=== PATIENT | male | born 1945 | race Caucasian/White ===

== ENCOUNTER 2019-03-10 05:34 | Emergency (ER) | payer MEDICARE, OTHER ==
[~2019-03-10] VITALS: Ht 170.2 cm; Wt 72.6 kg
[~2019-03-10 05:34] MED LIST: ADDERALL 20 MG20 MG PO; ASPIRIN81 MG PO; METOPROLOL TART25 MG PO
--- OUTSIDE RECORDS SUMMARY | 2019-03-10 05:37 | XMS REPORT | Summary of Care ---
Author Author [facility] Urology [facility] Organization [facility] Address Unknown Phone Unavailable Encounter NARINDER Ocampo(FIN) [id number] Date(s): 02/25/19 - 02/25/19 [facility] [address] [address]- [phone] Discharge Disposition: Home or Self Care Attending Physician: Juan Domínguez MD Vital Signs Most recent to 1 oldest [Reference Range]: Weight 70.455 kg (02/25/19 2:35 PM) Problem List No data available for this section Allergies, Adverse Reactions, Alerts No Known Medication Allergies Medications No Known Medications Results No data available for this section Immunizations No data available for this section Procedures Procedure Date Related Diagnosis Body Site Status Complex cystometrogram (ie, calibrated 02/25/19 Completed electronic equipment); with voiding pressure studies (ie, bladder voiding pressure), any technique Complex uroflowmetry (eg, calibrated 02/25/19 Completed electronic equipment) Cystourethroscopy (separate procedure) 02/25/19 Completed Electromyography studies (EMG) of anal or 02/25/19 Completed urethral sphincter, other than needle, any technique Voiding pressure studies, intra-abdominal 02/25/19 Completed (ie, rectal, gastric, intraperitoneal) (List separately in addition to code for primary procedure) Social History Social History Type Response Smoking Status Unknown if ever smoked; Exposure to Tobacco Smoke None; Cigarette Smoking Last 365 Days Unable to obtain; Reg Smoking Cessation Counseling No entered on: 02/25/19 Assessment and Plan No data available for this section
--- OUTSIDE RECORDS SUMMARY | 2019-03-10 05:37 | XMS REPORT | Summary of Care ---
Author Author [facility] Urology [facility] Organization [facility] Urology [facility] Address Unknown Phone Unavailable Encounter NARINDER Ocampo(FIN) [id number] Date(s): 02/19/19 - 02/19/19 [facility] Urology [address] [place] [address]- [phone] Discharge Disposition: Home or Self Care Vital Signs No data available for this section Problem List No data available for this section Allergies, Adverse Reactions, Alerts No Known Medication Allergies Medications No data available for this section Results Most recent to 1 oldest [Reference Range]: POC UA Bili Negative [Negative] *NA* (02/19/19 3:51 PM) POC UA Bld Trace [Negative] *NA* (02/19/19 3:51 PM) POC UA Color Yellow [Yellow] *NA* (02/19/19 3:51 PM) POC UA Glu [Negative Negative mg/dL mg/dL] *NA* (02/19/19 3:51 PM) POC UA Ket [Negative Negative mg/dL mg/dL] *NA* (02/19/19 3:51 PM) POC UA LeukEst Negative [Negative] *NA* (02/19/19 3:51 PM) POC UA Nit Negative [Negative] *NA* (02/19/19 3:51 PM) POC UA pH [5.0-8.0] 6.0 (02/19/19 3:51 PM) POC UA Prot Negative mg/dL [Negative mg/dL] *NA* (02/19/19 3:51 PM) POC UA SG [<=1.030] <=1.005 *NA* (02/19/19 3:51 PM) POC UA Turbidity Clear [Clear] *NA* (02/19/19 3:51 PM) POC UA Uro [0.1-1.0 0.2 EU/dL EU/dL] (02/19/19 3:51 PM) Immunizations No data available for this section Procedures No data available for this section Social History Social History Type Response Smoking Status Unknown if ever smoked; Exposure to Tobacco Smoke None; Cigarette Smoking Last 365 Days Unable to obtain; Reg Smoking Cessation Counseling No entered on: 02/18/19 Assessment and Plan No data available for this section
--- OUTSIDE RECORDS SUMMARY | 2019-03-10 05:37 | XMS REPORT | Summary of Care ---
Author Author [facility] Urology [facility] Organization [facility] Urology [facility] Address Unknown Phone Unavailable Encounter NARINDER Ocampo(FIN) [id number] Date(s): 03/06/19 - 03/06/19 [facility] Urology [address] [place] [address]- [phone] Discharge Disposition: Home or Self Care Attending Physician: Juan Domínguez MD Vital Signs No data available for this section Problem List No data available for this section Allergies, Adverse Reactions, Alerts No Known Medication Allergies Medications Cipro 500 mg oral tablet 500 mg=1 tab, PO, Q12H, start taking on 03/09/19, X 3 day, # 6 tab, 0 Refill(s), Pharmacy: [facility] [place] Start Date: 03/06/19 Stop Date: 03/09/19 Status: Ordered Results No data available for this section [...]
--- OUTSIDE RECORDS SUMMARY | 2019-03-10 05:37 | XMS REPORT | Continuity of Care Document ---
Author Author [email or web address] Organization [email or web address] Address Unknown Phone Unavailable Care Team Providers Care Washing Machine Operator Name Role Phone [email or web address] Unavailable Unavailable Problems No Data Provided for This Section Medications Medication Details Route Status Patient Instructions Ordering Provider Order Date Source Ciprofloxacin 500 MG Oral Tablet [Cipro] 500 mg=1 tab, PO, Q12H, start taking on 03/09/19, X 3 day, # 6 tab, 0 Refill(s), Pharmacy: [facility] [place] Active 03/06/2019 [facility] tamsulosin 0.4 mg oral capsule 0 Refill(s) Active 02/18/2019 [facility] finasteride 5 mg oral tablet 0 Refill(s) Active 02/18/2019 [facility] amphetamine-dextroamphetamine 20 mg oral tablet 0 Refill(s) Active 02/18/2019 [facility] Allergies, Adverse Reactions, Alerts Substance Category Reaction Severity Reaction type Status Date Reported Comments Source No Known Medication Allergies Assertion Drug allergy [facility] Immunizations No Data Provided for This Section Results Order Name Results Value Reference Range Date Interpretation Comments Source URINE AND STOOL POC UA Bili Negative *NA* (02/19/19 3:51 PM) Negative 02/19/2019 [facility] URINE AND STOOL POC UA Color Yellow *NA* (02/19/19 3:51 PM) Yellow 02/19/2019 [facility] URINE AND STOOL POC UA Ket Negative mg/dL Negative mg/dL 02/19/2019 [facility] URINE AND STOOL POC UA Prot Negative mg/dL Negative mg/dL 02/19/2019 [facility] URINE AND STOOL POC UA Bld Trace *NA* (02/19/19 3:51 PM) Negative 02/19/2019 [facility] URINE AND STOOL POC UA Glu Negative mg/dL Negative mg/dL 02/19/2019 [facility] URINE AND STOOL POC UA Nit Negative *NA* (02/19/19 3:51 PM) Negative 02/19/2019 [facility] URINE AND STOOL POC UA Uro 0.2 0.1 - 1.0 02/19/2019 [facility] URINE AND STOOL POC UA pH 6.0 5.0 - 8.0 02/19/2019 [facility] URINE AND STOOL POC UA SG <=1.005 *NA* (02/19/19 3:51 PM) <=1.030 02/19/2019 [facility] URINE AND STOOL POC UA Turbidity Clear *NA* (02/19/19 3:51 PM) Clear 02/19/2019 [facility] URINE AND STOOL POC UA LeukEst Negative *NA* (02/19/19 3:51 PM) Negative 02/19/2019 [facility] Pathology Reports No Data Provided for This Section Diagnostic Reports No Data Provided for This Section Consultation Notes No Data Provided for This Section Discharge Summaries No Data Provided for This Section History and Physicals No Data Provided for This Section Vital Signs Vital Sign Value Date Comments Source Weight 70.455 02/25/2019 [facility] Weight 70.455 02/18/2019 [facility] BMI Calculated 24.33 02/18/2019 [facility] Height 170.18 cm 02/18/2019 [facility] Encounters Location Location Details Encounter Type Encounter Number Reason For Visit Attending Provider ADM Date DC Date Status Source [id number] Active [facility] Outpatient [id number] [facility] 02/18/2019 02/19/2019 [facility] Outpatient [id number] -URODYNAMICS, 02/19/2019 Active [facility] Urology [facility] Outpatient [id number] 02/19/2019 02/20/2019 [facility] Outpatient [id number] [facility] 02/25/2019 Active [facility] Urology [facility] Outpatient [id number] [facility] 02/25/2019 02/26/2019 [facility] Outpatient [id number] NURSE VISIT 03/06/2019 Active [facility]rology [facility] Outpatient [id number] [facility] 03/06/2019 03/07/2019 [facility] Outpatient [id number] MED_ASST VISIT 03/08/2019 Active [facility] Outpatient [id number] [facility] 04/02/2019 Active [facility] Procedures Procedure Code Date Perfomer Comments Source Electromyography studies (EMG) of anal or urethral sphincter, other than needle, any technique 34398 02/25/2019 [facility] cystometrogram (ie, calibrated electronic equipment); with voiding pressure studies (ie, bladder voiding pressure), any technique 10607 02/25/2019 [facility] Voiding pressure studies, intra-abdominal (ie, rectal, gastric, intraperitoneal) (List separately in addition to code for primary procedure) 08032 02/25/2019 [facility] Cystourethroscopy (separate procedure) 30015 02/25/2019 [facility] uroflowmetry (eg, calibrated electronic equipment) 33627 02/25/2019 [facility] Assessment and Plan No Data Provided for This Section Plan of Care No Data Provided for This Section Social History Social History Date Source Social History TypeResponse Smoking Status Unknown if ever smoked; Exposure to Tobacco Smoke None; Cigarette Smoking Last 365 Days Unable to obtain; Reg Smoking Cessation Counseling No entered on: 02/25/19 02/25/2019 [facility] Family History No Data Provided for This Section Advance Directives No Data Provided for This Section Functional Status No Data Provided for This Section
--- OUTSIDE RECORDS SUMMARY | 2019-03-10 05:37 | XMS REPORT | Summary of Care ---
Author Author [facility] Urology [facility] Organization [facility] Urology [facility] Address Unknown Phone Unavailable Encounter NARINDER Ocampo(FIN) [id number] Date(s): 02/18/19 - 02/18/19 [facility] Urology [address] [place] [address]- [phone] Discharge Disposition: Home or Self Care Attending Physician: Juan Domínguez MD Vital Signs Most recent to 1 oldest [Reference Range]: Height 170.18 cm (02/18/19 3:54 PM) Weight 70.455 kg (02/18/19 3:54 PM) Body Mass Index 24.33 m2 (02/18/19 3:54 PM) Problem List No data available for this section Allergies, Adverse Reactions, Alerts No Known Medication Allergies Medications amphetamine-dextroamphetamine 20 mg oral tablet 0 Refill(s) Start Date: 02/18/19 Status: Ordered finasteride 5 mg oral tablet 0 Refill(s) Start Date: 02/18/19 Status: Ordered tamsulosin 0.4 mg oral capsule 0 Refill(s) Start Date: 02/18/19 Status: Ordered Results No data available for [...]
--- OUTSIDE RECORDS SUMMARY | 2019-03-10 05:37 | XMS REPORT ---
Author Author [facility] Address Unknown Phone Unavailable Care Team Providers Care Spa Therapist Name Role Phone Unavailable Unavailable Payers Payer Name Policy Type Policy Number Effective Date Expiration Date Problems This patient has no known problems. Allergies, Adverse Reactions, Alerts Allergy Name Allergy Type Status Severity Reaction(s) Onset Date Inactive Date Treating Clinician Comments No Known Allergies DA Active U 2019-02-11 00:00:00 Medications This patient has no known medications. Results Test Description Test Time Test Comments Text Results Atomic Results Result Comments COMPREHENSIVE METABOLIC PANEL 2019-02-11 12:23:00 SODIUM (test code=NA) 142 mmol/L 136-145 POTASSIUM (test code=K) 4.2 mmol/L 3.5-5.1 CHLORIDE (test code=CL) 112.0 mmol/L 98-107 CARBON DIOXIDE (test code=CO2) 26.0 mmol/L 21-32 ANION GAP (test code=GAP) 8.2 10-20 GLUCOSE (test code=GLU) 82 mg/dL 74-106 BLOOD UREA NITROGEN (test code=BUN) 18 mg/dL 7-18 GLOMERULAR FILTRATION RATE (test code=GFR) > 60 mL/min >=60 Estimated GFR by using Modified MDRD formula.Chronic kidney disease is defined as either kidney damageor GFR <60 mL/min/1.73 m2 for >3 months. CREATININE (test code=CREAT) 1.10 mg/dL 0.7-1.3 BUN/CREATININE RATIO (test code=BUN/CREA) 16.4 10-20 TOTAL PROTEIN (test code=PROT) 7.0 gram/dL 6.4-8.2 ALBUMIN (test code=ALB) 3.9 g/dL 3.4-5.0 GLOBULIN (test code=GLOB) 3.1 gram/dL 2.7-4.2 ALBUMIN/GLOBULIN RATIO (test code=A/G) 1.3 0.75-1.50 CALCIUM (test code=CA) 9.0 mg/dL 8.5-10.1 BILIRUBIN TOTAL (test code=BILT) 0.40 mg/dL 0.0-1.0 SGOT/AST (test code=AST) 18 IUnit/L 15-37 SGPT/ALT (test code=ALT) 27 IUnit/L 12-78 ALKALINE PHOSPHATASE TOTAL (test code=ALKP) 78 IUnit/L 45-117 Note change in reference range due to change in reagent. LIPID PROFILE (CORONARY RISK)2019-02-11 12:23:00* Test Item Value Reference Range Comments TRIGLYCERIDES (test code=TRIG) 145 mg/dL 20-150 CHOLESTEROL (test code=CHOL) 156 mg/dL 0-200 CHOLESTEROL/HDL RATIO (test code=CHOLHDL) 3.0 RATIO 0-4.9 RISK ASSOCIATED WITH CHOL/HDL RATIOS: Risk Male Female1/2 AVERAGE 3.43 3.27AVERAGE 4.97 4.442X AVERAGE 9.55 7.053X AVERAGE 23.39 11.04 REFERENCE VALUE IS RELATED TO RISK LEVELS ASRECOMMENDED BY THE MARIANA. HEART, LUNG, AND BLOOD INST. HDL CHOLESTEROL (test code=HDL) 47 mg/dL 40-60 LIPOPROTEIN LDL (test code=LDL) 83 mg/dL 100-129 Reference Interval: mg/dL mmol/L Optimal <100 <2.6Near/above optimal 100-129 2.6- 3.3Borderline High 130-159 3.4-4.1High 160-189 4.1-4.9Very High >=190 >=4.9=========This LDL result is a direct measurement.========= THYROID STIMULATING [id number] 12:23:00* Test Item Value Reference Range Comments THYROID STIMULATING HORMONE (test code=TSH) 1.460 uIU/mL 0.36-3.74 TSH REFERENCE RANGES: EUTHYROID: 0.35 - 4.3 mIU/mL HYPO : > 5.5 mIU/mL HYPER : < 0.35 mIU/mL COMPREHENSIVE METABOLIC [id number] 11:49:00* Test Item Value Reference Range Comments SODIUM (test code=NA) 142 mmol/L 136-145 POTASSIUM (test code=K) 4.2 mmol/L 3.5-5.1 CHLORIDE (test code=CL) 112.0 mmol/L 98-107 CARBON DIOXIDE (test code=CO2) mmol/L 21-32 ANION GAP (test code=GAP) 10-20 GLUCOSE (test code=GLU) mg/dL 74-106 BLOOD UREA NITROGEN (test code=BUN) mg/dL 7-18 GLOMERULAR FILTRATION RATE (test code=GFR) mL/min >=60 CREATININE (test code=CREAT) mg/dL 0.7-1.3 BUN/CREATININE RATIO (test code=BUN/CREA) 10-20 TOTAL PROTEIN (test code=PROT) gram/dL 6.4-8.2 ALBUMIN (test code=ALB) g/dL 3.4-5.0 GLOBULIN (test code=GLOB) gram/dL 2.7-4.2 ALBUMIN/GLOBULIN RATIO (test code=A/G) 0.75-1.50 CALCIUM (test code=CA) mg/dL 8.5-10.1 BILIRUBIN TOTAL (test code=BILT) mg/dL 0.0-1.0 SGOT/AST (test code=AST) IUnit/L 15-37 SGPT/ALT (test code=ALT) IUnit/L 12-78 ALKALINE PHOSPHATASE TOTAL (test code=ALKP) IUnit/L 45-117 LIPID PROFILE (CORONARY RISK)2019-02-11 11:49:00* Test Item Value Reference Range Comments TRIGLYCERIDES (test code=TRIG) mg/dL 20-150 CHOLESTEROL (test code=CHOL) mg/dL 0-200 CHOLESTEROL/HDL RATIO (test code=CHOLHDL) RATIO 0-4.9 HDL CHOLESTEROL (test code=HDL) mg/dL 40-60 LIPOPROTEIN LDL (test code=LDL) mg/dL 100-129 THYROID STIMULATING [id number] 11:49:00* Test Item Value Reference Range Comments THYROID STIMULATING HORMONE (test code=TSH) uIU/mL 0.36-3.74 PROTHROMBIN [id number] 10:58:00* Test Item Value Reference Range Comments PROTHROMBIN TIME PATIENT (test code=PTP) 11.5 seconds 9.0-14.0 INTERNATIONAL NORMAL RATIO (test code=INR) 1.0 0.8-1.2 The therapeutic range for oral anticoagulant therapy formost indications is an international normalized ratio (INR)of between 2.0 and 3.0. The recommended therapeutic INRrange for various clinical situations is listed below: Clinical Situation INR range Pulmonary e mbolism treatment (2.0-3.0)Venous thrombosis treatmentVenous thrombosis prophylaxis (high risk surgery)Prevention of systemic embolism from: Acute myocardial infarction Valvular heart disease Atrial fibrillation Mechanical prosthetic heart valves (2.5-3.5) THROMBOPLASTIN TIME [id number] 10:58:00* Test Item Value Reference Range Comments THROMBOPLASTIN TIME PARTIAL (test code=PTT) 34.5 seconds 25.0-36.5 CBC W/AUTO [id number] 10:45:00* Test Item Value Reference Range Comments WHITE BLOOD CELL (test code=WBC) 6.0 K/mm3 4.5-12.5 RED BLOOD CELL (test code=RBC) 4.26 mill/mm3 4.0-5.8 HEMOGLOBIN (test code=HGB) 14.5 gram/dL 13.0-17.5 HEMATOCRIT (test code=HCT) 44.2 % 42.0-52.0 MEAN CELL VOLUME (test code=MCV) 103.8 fL 80-98 MEAN CELL HGB (test code=MCH) 34.0 picogram 27.0-33.0 MEAN CELL HGB CONCETRATION (test code=MCHC) 32.8 gram/dL 33.0-36.0 RED CELL DISTRIBUTION WIDTH (test code=RDW) 13.2 % 11.6-16.2 RED CELL DISTRIBUTION WIDTH SD (test code=RDW-SD) 49.8 fL 37.0-51.0 PLATELET COUNT (test code=PLT) 214 K/mm3 150-450 MEAN PLATELET VOLUME (test code=MPV) 11.4 fL 6.7-11.0 NEUTROPHIL % (test code=NT%) 55.3 % 39.0-69.0 IMMATURE GRANULOCYTE % (test code=IG%) 0.3 % 0.0-5.0 LYMPHOCYTE % (test code=LY%) 27.2 % 25.0-55.0 MONOCYTE % (test code=MO%) 11.1 % 0.0-10.0 EOSINOPHIL % (test code=EO%) 5.3 % 0.0-5.0 BASOPHIL % (test code=BA%) 0.8 % 0.0-1.0 NUCLEATED RBC % (test code=NRBC%) 0.0 % 0-0 NEUTROPHIL # (test code=NT#) 3.34 K/mm3 1.8-7.7 IMMATURE GRANULOCYTE # (test code=IG#) 0.02 x10 3/uL 0-0.03 LYMPHOCYTE # (test code=LY#) 1.64 K/mm3 1.0-5.0 MONOCYTE # (test code=MO#) 0.67 K/mm3 0-0.8 EOSINOPHIL # (test code=EO#) 0.32 K/mm3 0.0-0.5 BASOPHIL # (test code=BA#) 0.05 K/mm3 0.0-0.2 NUCLEATED RBC # (test code=NRBC#) 0.00 K/mm3 0.0-0.1 - XR CHEST 2 [id number] 10:00:00 FAX: Armida Flores [phone] [place]: O St: PRE FAX: Vadim Babcock MD [phone] Name: MAYA HOOKS [facility] : 1945 Age/S: 73/M [address] [facility] Unit #: [id number] Loc: [place] [address] Phys: Armida Sandoval MD Acct: [id number] Dis Date: Status: PRE SDC PHONE #: [phone] Exam Date: 02/11/2019944 FAX #: [phone] Reason: PRE OP EXAMS: CPT CODE: [id number] XR CHEST 2 V 27324 HISTORY: Preop. COMPARISON: None available. AP and lateral view of the chest: No acute infiltrates, effusion or congestion. Hyperinflation. Cardiac silhouette is mildly enlarged. IMPRESSION: No acute infiltrates, effusion or congestion. at 1000 Reported and signed by: Trav Iglesias M.D. CC: Armida Sandoval MD; Vadim Marion MD Technologist: EDUARDO VICTORIA (R) Trnscrd Date/Time/By: 02/11/2019 (1000) : By: [email or web address] Orig Print D/T: S: 02/11/2019 (1003) PAGE 1 Signed Report
[2019-03-10 06:05] LABS: BASOPHILS # (AUTO) 0.1 (0.0-0.1); BASOPHILS % 1.3 % (0.0-1.0); EOSINOPHILS # (AUTO) 0.4 (0.0-0.4); EOSINOPHILS % 5.1 % (0.0-6.0); HEMATOCRIT 43.4 % (38.2-49.6); HEMOGLOBIN 14.3 g/dL (14.0-18.0); LYMPHOCYTES # (AUTO) 2.1 (1.0-3.2); MEAN CORPUSCULAR HEMOGLOBIN 33.3 pg (28-32); MEAN CORPUSCULAR HGB CONC 32.9 g/dL (31-35); MEAN CORPUSCULAR VOLUME 101.2 fL (81-99); MONOCYTES # (AUTO) 0.8 (0.2-0.8); MONOCYTES % 12.2 % (4.4-11.3); NEUTROPHILS # (AUTO) 3.5 (2.1-6.9); NEUTROPHILS % 51.3 % (38.7-80.0); PLATELET COUNT 200 x10e3/uL (140-360); RED BLOOD COUNT 4.29 x10e6/uL (4.3-5.7); RED CELL DISTRIBUTION WIDTH 13.2 % (11.7-14.4)
[2019-03-10] MEDS ORDERED: MONTELUKAST SOD10 MG PO (06:07)
[2019-03-10] MEDS ORDERED: FINASTERIDE5 MG PO (06:07)
[2019-03-10 06:10] LABS: INR 0.86; PROTHROMBIN TIME 12.2 seconds (11.9-14.5)
[2019-03-10 06:11] LABS: PARTIAL THROMBOPLASTIN TIME 26.9 seconds (23.8-35.5)
[2019-03-10] MEDS ORDERED: FLOMAX0.4 MG PO (06:14)
[2019-03-10 06:46] LABS: ALANINE AMINOTRANSFERASE 17 IU/L (0-55); ALBUMIN 3.8 g/dL (3.5-5.0); ALBUMIN/GLOBULIN RATIO 1.4 (0.8-2.0); ALKALINE PHOSPHATASE 74 IU/L (40-150); ANION GAP 13.3 mmol/L (8-16); BLOOD UREA NITROGEN 21 mg/dL (7-26); BUN/CREATININE RATIO 26 (6-25); CALCIUM 9.7 mg/dL (8.4-10.2); CARBON DIOXIDE 25 mmol/L (22-29); CHLORIDE 109 mmol/L (98-107); CREATINE KINASE 91 IU/L (30-200); EST GLOMERULAR FILTRATION RATE > 60 ML/MIN (60-); GLUCOSE 95 mg/dL (74-118); POTASSIUM 4.3 mmol/L (3.5-5.1); SODIUM 143 mmol/L (136-145)
[2019-03-10] MEDS ORDERED: MORPHINE SULFATE 2 MG/ML SYR 1ML IV PRN (08:00)
[2019-03-10] MEDS ORDERED: ONDANSETRON HCL INJ 2MG/ML 2ML 2 MG/ML VIAL IV PRN (08:00)
[2019-03-10] MEDS ORDERED: NITROGLYCERIN 0.4 MG SUBL SL PRN (08:00)
--- NOTE | 2019-03-10 08:38 | Diagnostic Imaging Report ---
Examination: Single AP view of the chest. COMPARISON: None. INDICATION: Chest pain DISCUSSION: Lines/tubes: None. Lungs: Increased density in the superior right hemithorax medially/right paratracheal stripe without mass effect, nonspecific. There is no evidence of pneumonia or pulmonary edema. Pleura: There is no pleural effusion or pneumothorax. Heart and mediastinum: The cardiac silhouette is mildly enlarged. Aorta starting is unfolded. Bones and soft tissues: No acute bony abnormalities. IMPRESSION: 1. No acute thoracic abnormality. Signed by: Dr. Jagjit Oliveira M.D. on 03/10/2019 8:34 AM
[2019-03-10] MEDS ORDERED: ASPIRIN 81 MG ENTERIC COATED PO SCH (09:00)
[2019-03-10] MEDS ORDERED: FAMOTIDINE 20 MG/2 ML VIAL IV SCH (09:00)
--- NOTE | 2019-03-10 09:10 | NUR ---
DR. HOOKER AND DR. PEMBERTON'S FIBERGLASS CONTAINER WINDING OPERATOR IN TO SEE PATIENT. REPEAT CARDIAC ENZYMES, IF NEGATIVE DISCHARGE TO HOME AND FOLLOW UP WITH PCP TOMORROW.
[2019-03-10 09:21] LABS: CREATINE KINASE 84 IU/L (30-200)
[2019-03-10 09:50] VITALS: BP 149/74
--- NOTE | 2019-03-10 10:22 | History and Physical ---
REASON FOR ADMISSION: A 73-year-old male, admitted to the hospital for chest pain. HISTORY OF PRESENTING ILLNESS: Mr. Ramirez with a recent left heart catheterization, was in usual state of health until last night. The patient went to the restaurant, had sea foods and apparently had indigestion like symptoms with a history of CAD. The patient came to the emergency room, was admitted for 24-hour observation, rule out acute coronary symptom. PAST SURGICAL HISTORY: History of cardiac cath. The patient also has history of hernia repair. PAST MEDICAL HISTORY: History of hypertension, history of coronary artery disease, history of myocardial infarction, and history of hyperlipidemia and BPH. MEDICATIONS: As per medical reconciliation sheet. ALLERGIES: SEE NURSE'S NOTE. SOCIAL HISTORY: History of smoking in the past. Currently nonsmoker. No EtOH. No IV drug abuse. No history of smoking at this time. REVIEW OF SYSTEMS: Positive for chest pain. No shortness of breath. Positive for some nausea. No vomiting. No diarrhea. No constipation. Positive for reflux symptoms. No diplopia. No blurry vision. Positive for shortness of breath with exertion. PHYSICAL EXAMINATION: GENERAL: The patient is alert and oriented x3. VITAL SIGNS: Stable. HEENT: Normocephalic, atraumatic. Pupils are reactive to light and accommodation. CVS: S1, S2 normal. Regular rate and rhythm. ABDOMEN: Nontender, nondistended. LUNGS: Decreased air entry. EXTREMITIES: No clubbing, no cyanosis. Decreased pulses. LABORATORY VALUES: Troponins are negative. CBC all within normal limits. Chemistries are normal. Cardiac enzymes as noted normal. Coags are normal. The patient's EKG normal sinus rhythm. Nonspecific ST-T changes noted. Previous catheterization from the office of Dr. Sandoval shows EF of 45-50%, 100% block in the RCA, 40% OM and also 30% LAD. ASSESSMENT: 1. Chest pain, rule out acute coronary syndrome, status post left heart catheterization. 2. Hyperlipidemia. 3. Hypertension. 4. History of smoking. 5. History of hernia surgery. 6. History of left heart catheterization. PLAN: Observe the patient. Trend troponins. Dr. Sandoval has been consulted and admitted to Dr. Marion. MD KENNEDY Pizano/MODL /[id number]
--- NOTE | 2019-03-10 10:41 | Consultation ---
DATE OF CONSULTATION: 03/10/2019 REASON FOR CONSULTATION: Chest pain. CHIEF COMPLAINT: Epigastric pain. 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 The patient presents to the [facility] ER with complaints of chest pain and Cardiology was consulted to evaluate the patient. The patient is seen in the ER. Reports last night went to [employer] and developed some epigastric burning sensation, took some home remedies with some mild relief. However, given his heart history, his daughter decided that he needs to come to the ER and be evaluated. Cardiac enzymes so far negative. EKG without any changes suggestive of acute event. Of note, the patient reports has been having reflux type symptoms for many months and does take home remedies at times with some relief. The patient denies any exertional chest pain. No shortness of breath. States he feels fine and is asking to go home. 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 PAST SURGICAL HISTORY: Removal of umbilical hernia in 2011, right inguinal hernia in 2011. FAMILY HISTORY: Mother at age 91, apparently had a history of breast cancer. Father at age 85, has a history of Alzheimer. SOCIAL HISTORY: He is . He is a former smoker. He quit in 1964. 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 ALLERGIES: NO KNOWN ALLERGIES. REVIEW OF SYSTEMS: GENERAL: Denies any weight change, fatigue, weakness, fevers, chills, or night sweats. SKIN: No rashes or sores. HEENT: No nausea, vomiting, any blurred vision, any epistaxis, any earaches, drainage, sore throat, or swollen neck. CARDIAC: Denies any exertional chest pain. Positive for dyspnea on exertion. No orthopnea, PND, or lower extremity edema. RESPIRATORY: Dyspnea on exertion. Denies any hemoptysis. GI: Reports good appetite. Denies any nausea, vomiting, diarrhea, or constipation. Positive for reflux and GERD symptoms. : Positive for frequency and urgency. Denies any hematuria. VASCULAR: Denies any lower extremity edema or claudication. MUSCULOSKELETAL: Reports generalized joint pains. NEUROLOGIC: Denies any tingling, tremors, weakness, paralysis, fainting, or seizures. HEMATOLOGY: Denies any anemia or bruising. ENDOCRINE: Denies any heat or cold intolerance, any polyuria, polydipsia, or polyphagia. PHYSICAL EXAMINATION: VITAL SIGNS: Height 67 inches, weight 160 pounds. Temperature 98, pulse of 75, respiratory rate 18, blood pressure 149/90, and pulse ox 99% on room air. GENERAL: Appears stated age, reliable informant, in no acute distress. SKIN: No rashes or bruises noted. HEENT: Normocephalic. Pupils are equal and reactive. Extraocular movements intact. NECK: No JVD. Soft carotid bruit bilaterally. HEART: Regular rate and rhythm. Systolic murmur heard at the left upper sternal border. LUNGS: Bilateral breath sounds, clear to auscultation. ABDOMEN: Soft, nontender, and nondistended. No organomegaly noted. MUSCULOSKELETAL: Good muscle strength throughout. VASCULAR: +2 bilateral radial pulses, +1 DP and PT pulses bilaterally. No lower extremity edema. NEUROLOGIC: Cranial nerves II through XII seem intact. LABORATORY DATA: White count 6, hemoglobin 14, hematocrit 43, platelets of 200. Chemistry; sodium 143, potassium 4.3, BUN 21, creatinine 0.8. Troponin less than 0.001. CK-MB 2.3. CK 91. EKG normal sinus rhythm with no acute changes suggesting an acute event. Chest x-ray, no acute abnormalities. ASSESSMENT: 1. Reflux advised by symptoms and history. 2. Coronary artery disease. 3. Severe mitral regurgitation. PLAN: 1. The patient presents with burning sensation in the epigastric region. Reports these symptoms for many months. He has been taking home remedies with relief. The patient denies any exertional chest pains or shortness of breath. The patient reports he is feeling much better. Cardiac enzymes negative thus far. We will repeat another set of cardiac enzymes. If negative, the patient is okay to leave from heart standpoint. However, he can follow up in the office early this week. 2. Advised the patient for PPI therapy. 3. The patient okay to go home if cardiac enzymes are negative. Thank you very much for this consult. Dictated by Chencho Yoon NP EVALUATED CASE DISCUSSED WITH ARSALAN CASEY Armida Sandoval MD DC/JACQUIE /[id number] MTDD
[2019-03-11] MEDS ORDERED: PANTOPRAZOLE SOD 40 MG TABEC PO SCH (07:30)
== END 2019-03-10 10:01 | disposition home or self-care (01) ==
LOC: ER 05:34
DX: R07.89 Other chest pain (principal); I25.10 Atherosclerotic heart disease of native coronary artery without angina pectoris; E78.5 Hyperlipidemia, unspecified; I25.2 Old myocardial infarction; Z87.891 Personal history of nicotine dependence
CPT/HCPCS: 36415; 71045; 80053; 82550; 82553; 84484; 85025; 85610; 85730; 93005; 99284

== ENCOUNTER → 2020-07-29 | Outpatient (CLI) | payer MEDICARE ==
[~2020-07-29] MED LIST changes: +FINASTERIDE5 MG PO; +FLOMAX0.4 MG PO; +MONTELUKAST SOD10 MG PO
== END ==
LOC: RAD 12:19
PROVIDERS: ATTEND Internal Medicine
DX: I50.32 Chronic diastolic (congestive) heart failure (principal)
CPT/HCPCS: 71046

== ENCOUNTER → 2022-09-19 | Outpatient (CLI) | payer MEDICARE | LOC: MRI 12:54 | PROVIDERS: ATTEND Internal Medicine | DX: M54.2 Cervicalgia (principal); R51.9 Headache, unspecified | CPT/HCPCS: 70551; 72141 ==

== ENCOUNTER → 2024-01-31 | Day surgery (SDC) | payer MEDICARE ==
[2024-01-26 12:04] LABS: BASOPHILS # (AUTO) 0.1 (0.0-0.1); BASOPHILS % 0.8 % (0.0-1.0); EOSINOPHILS # (AUTO) 0.3 (0.0-0.4); EOSINOPHILS % 3.5 % (0.0-6.0); HEMATOCRIT 41.6 % (38.2-49.6); HEMOGLOBIN 13.3 g/dL (14.0-18.0); LYMPHOCYTES # (AUTO) 1.5 (1.0-3.2); LYMPHOCYTES % 18.9 % (18.0-39.1); MEAN CORPUSCULAR HEMOGLOBIN 33.2 pg (28-32); MEAN CORPUSCULAR VOLUME 103.7 fL (81-99); MONOCYTES # (AUTO) 1.1 (0.2-0.8); MONOCYTES % 14.2 % (4.4-11.3); NEUTROPHILS # (AUTO) 4.8 (2.1-6.9); NEUTROPHILS % 62.2 % (38.7-80.0); PLATELET COUNT 241 x10e3/uL (140-360); RED BLOOD COUNT 4.01 x10e6/uL (4.3-5.7); RED CELL DISTRIBUTION WIDTH 13.1 % (11.7-14.4); WHITE BLOOD COUNT 7.72 x10e3/uL (4.8-10.8)
[~2024-01-31] MED LIST changes: +ALBUTEROL0.63 MG/3 NEB; +BYSTOLIC10 MG PO; +LIDOCAINE HCL 2% LOCAL INJ 5 ML SDV VIAL INJ ONE; +LINZESS72 MCG PO; +MULTI-VITAMIN1 EACH PO; +PANTOPRAZOLE SO40 MG PO; +PROPOFOL IV EMULSION 10 MG/ML 20 ML VIAL ONE; +PROPOFOL IV EMULSION 10 MG/ML 50 ML VIAL IV ONE; +PROPOFOL IV EMULSION 50 ML IV ONE; +RAPAFLO8 MG PO; +VESICARE5 MG PO; +ZETIA10 MG PO
[2024-01-31] MEDS: LACTATED RINGER'S 1,000 ML ONE (09:57)
[2024-01-31 12:00] VITALS: BP 110/71; PULSE 70; RESP 17; TEMP 97.2; O2SAT 98
== END | disposition home or self-care (01) ==
LOC: OR 09:38
PROVIDERS: ATTEND Internal Medicine Gastroenterology
DX: Z12.11 Encounter for screening for malignant neoplasm of colon (principal); K57.30 Diverticulosis of large intestine without perforation or abscess without bleeding; K59.00 Constipation, unspecified; K64.8 Other hemorrhoids; K44.9 Diaphragmatic hernia without obstruction or gangrene; K21.9 Gastro-esophageal reflux disease without esophagitis; Z87.19 Personal history of other diseases of the digestive system; G47.33 Obstructive sleep apnea (adult) (pediatric); I25.10 Atherosclerotic heart disease of native coronary artery without angina pectoris; N40.0 Benign prostatic hyperplasia without lower urinary tract symptoms; E78.5 Hyperlipidemia, unspecified; M54.2 Cervicalgia; F90.9 Attention-deficit hyperactivity disorder, unspecified type; Z01.810 Encounter for preprocedural cardiovascular examination; Z01.812 Encounter for preprocedural laboratory examination; Z79.82 Long term (current) use of aspirin; Z79.899 Other long term (current) drug therapy; Z95.2 Presence of prosthetic heart valve; Z87.891 Personal history of nicotine dependence
CPT/HCPCS: 36415; 45378; 85025; 93005; J2001

== ENCOUNTER → 2025-01-17 | Day surgery (SDC) | payer MEDICARE ==
[2025-01-16 12:00] LABS: BASOPHILS # (AUTO) 0.1 (0.0-0.1); BASOPHILS % 0.7 % (0.0-1.0); EOSINOPHILS # (AUTO) 0.2 (0.0-0.4); EOSINOPHILS % 2.5 % (0.0-6.0); HEMATOCRIT 41.4 % (38.2-49.6); HEMOGLOBIN 13.5 g/dL (14.0-18.0); LYMPHOCYTES # (AUTO) 1.2 (1.0-3.2); MEAN CORPUSCULAR HEMOGLOBIN 33.6 pg (28-32); MEAN CORPUSCULAR HGB CONC 32.6 g/dL (31-35); MONOCYTES # (AUTO) 0.9 (0.2-0.8); MONOCYTES % 11.5 % (4.4-11.3); NEUTROPHILS # (AUTO) 5.2 (2.1-6.9); PLATELET COUNT 214 x10e3/uL (140-360); RED BLOOD COUNT 4.02 x10e6/uL (4.3-5.7); RED CELL DISTRIBUTION WIDTH 13.2 % (11.7-14.4); WHITE BLOOD COUNT 7.49 x10e3/uL (4.8-10.8)
[2025-01-16 12:38] LABS: ANION GAP 14.8 mmol/L (8-16); CALCIUM 9.3 mg/dL (8.4-10.2); CREATININE, SERUM 0.8 mg/dL (0.72-1.25); POTASSIUM 4.8 mmol/L (3.5-5.1)
[~2025-01-17] MED LIST changes: +ACETAMINOPHEN 1000 MG/100 ML 100 ML IV ONE; +EPHEDRINE SULFATE INJ 50 MG/ML VIAL ONE; +FENTANYL CITRATE/PF 100MCG/2 ML INJ ONE; -PROPOFOL IV EMULSION 10 MG/ML 50 ML VIAL IV ONE; -PROPOFOL IV EMULSION 50 ML IV ONE; +SEVOFLURANE INHAL SOLN 250 ML PEN BTL ONE
[2025-01-17] MEDS: CEFTRIAXONE 1 GM VIAL ONE ×2 (07:01→07:04)
[2025-01-17] MEDS: GENTAMICIN 80MG/NS 100 ML 200 ML IV ONE (07:03)
[2025-01-17] MEDS: SODIUM CHLORIDE 0.9% 1000ML 1,000 ML ONE (07:03)
[2025-01-17] MEDS: PHENAZOPYRIDINE HCL 100 MG TAB ONE (10:34)
[2025-01-17 11:30] VITALS: BP 130/81; PULSE 56; RESP 18; O2SAT 95
== END | disposition home or self-care (01) ==
LOC: OR 06:21
PROVIDERS: ATTEND Urology
DX: N32.0 Bladder-neck obstruction (principal); N40.1 Benign prostatic hyperplasia with lower urinary tract symptoms; N13.8 Other obstructive and reflux uropathy; N35.812 Other bulbous urethral stricture, male; N39.0 Urinary tract infection, site not specified; N39.41 Urge incontinence; R39.14 Feeling of incomplete bladder emptying; R35.0 Frequency of micturition; Z87.442 Personal history of urinary calculi; N32.81 Overactive bladder; N50.0 Atrophy of testis; Z85.51 Personal history of malignant neoplasm of bladder; G47.33 Obstructive sleep apnea (adult) (pediatric); I25.810 Atherosclerosis of coronary artery bypass graft(s) without angina pectoris; I25.2 Old myocardial infarction; I10 Essential (primary) hypertension; K21.9 Gastro-esophageal reflux disease without esophagitis; K44.9 Diaphragmatic hernia without obstruction or gangrene; Z01.812 Encounter for preprocedural laboratory examination; Z01.818 Encounter for other preprocedural examination; Z79.82 Long term (current) use of aspirin; Z79.899 Other long term (current) drug therapy; Z98.890 Other specified postprocedural states; Z95.1 Presence of aortocoronary bypass graft; Z95.5 Presence of coronary angioplasty implant and graft
CPT/HCPCS: 36415; 52005; 52450; 71046; 74420; 80048; 85025; J0131; J0696; J1580; J2003; J2704; J3010; J7030